=== PATIENT | female | born 1940 | race Caucasian/White ===

== ENCOUNTER 2017-04-13 17:52 | Emergency (ER) | payer OTHER ==
[2017-04-13 18:02] VITALS: BMI 34.3
--- NOTE | 2017-04-13 18:43 | DR.GENAD ---
HPI - PCP Primary Care Physician: Eliza Erazo - Complaint/Symptoms Chief Complaint Doctors Comments: Patient with a history of CHF. Chief Complaint:: "PT IS SWELLING FOR THE PAST TWO DAYS IN FEET" - Source History Provided: Patient - Mode of Arrival Mode of Arrival: Wheelchair - Timing Onset of Chief Complaint: 04/12/17 PMH - PMH Past Medical History: Yes Past Medical History: CHF, COPD, Diabetes, GERD, Hypertension Past Surgical History: Yes Surgical History: Hysterectomy - Family History History of Family Medical Conditions: Yes Family Medical History: Diabetes Mellitus, Heart Failure, Hypertension - Social History Does patient currently use any type of tobacco product: No Have you used tobacco products in the last 12 months: No Type of Tobacco Use: None Does any household member use tobacco: No Alcohol Use: None Do you use any recreational Drugs:: No Lives With: Family Lives Where: Home - infectious screening In the last 2 months have you had wt loss of >10#?: NO Have you had fever, night sweats or hemotysis?: No Have you traveled outside the country in the last 6 months?: No Isolation: Standard ROS - Review of Systems Constitutional: No Symptoms Reported Eyes: No Symptoms Reported ENTM: No Symptoms Reported Respiratoy: No Symptoms Reported Cardiovascular: No Symptoms Reported Gastrointestinal/Abdominal: No Symptoms Reported Genitourinary: No Symptoms Reported Neurological: No Symptoms Reported Musculoskeletal: No Symptoms Reported Integumentary: No Symptoms Reported Hematologic/Lymphatic: No Symptoms Reported Endocrine: No Symptoms Reported Psychiatric: No Symptoms Reported All Other Systems: Reviewed and Negative PE - Vital Signs Vitals: Temperature 97.6 F Pulse Rate [Apical] 72 Pulse Rate 71 Respiratory Rate 18 Blood Pressure [Right Arm] 144/62 Blood Pressure 181/81 O2 Sat by Pulse Oximetry 100 - General Limitations: No Limitations General Appearance: Alert, In No Apparent Distress - Head Head Exam: Normal Inspection, Atraumatic - Eyes Eye exam: Normal Appearance, PERRL, EOMI - ENT ENT Exam: Normal Exam, Normal Oropharynx External Ear Exam: Normal External Inspection TM/Canal Exam: Bilateral Normal Nose Exam: Normal Nose Exam Mouth Exam: Normal Inspection Throat Exam: Normal Inspection - Neck Neck Exam: Normal Inspection - Chest Chest Inspection: Normal Inspection - Respiratory Respiratory Exam: Normal Lung Sounds Bilat Respiratory Exam: Bilateral Clear to Auscultation - Cardiovascular Cardiovascular Exam: Regular Rate, Normal Rhythm - Abdominal Exam Abdominal Exam: Normal Inspection, Normal Bowel Sounds Abdominal Tenderness: negative: RUQ, RLQ, LUQ, LLQ, Epigastrium, Suprapubic, Diffuse, Mild, Moderate, Severe, Other - Extremities Extremities Exam: Edema (lower extremities 2+pitting) - Back Back Exam: Normal Inspection, Full ROM - Neurologic Neurological Exam: Alert, Oriented X3, CN II-XII Intact - Psychiatric Psychiatric Exam: Normal Affect, Normal Mood, Depressed - Skin Skin Exam: Warm, Dry, Intact ROR - Labs Reviewed Result Diagrams: 04/13/17 18:54 04/13/17 18:54 Laboratory: WBC 9.3 X10^3/uL (3.6-10.0) 04/13/17 18:54 RBC 3.43 X10^6/uL (3.5-5.4) L 04/13/17 18:54 Hgb 8.8 g/dL (12.0-16.0) L 04/13/17 18:54 Hct 27.6 % (36.0-47.0) L 04/13/17 18:54 MCV 80.5 fL (80.0-100.0) 04/13/17 18:54 MCH 25.6 pg (27.0-34.0) L 04/13/17 18:54 MCHC 31.8 g/dL (33.0-35.0) L 04/13/17 18:54 RDW 18.0 % (11.6-16.5) H 04/13/17 18:54 Plt Count 191 X10^3/uL (150.0-450.0) 04/13/17 18:54 Plt Count Comment Adequate (ADEQUATE) 04/13/17 18:54 MPV 9.8 fL (7.4-11.0) 04/13/17 18:54 Neut % 66.3 % (42.0-75.0) 04/13/17 18:54 Lymph % 23.7 % (21.0-51.0) 04/13/17 18:54 Bledsoe % 6.8 % (0.0-13.0) 04/13/17 18:54 Eos % 2.4 % (0.9-2.9) 04/13/17 18:54 Baso % 0.8 % (0.2-1.0) 04/13/17 18:54 Neut # 6.2 x10^3/uL (2.2-4.8) H 04/13/17 18:54 Lymph # 2.2 X10^3/uL (1.3-2.9) 04/13/17 18:54 Bledsoe # 0.6 x10^3/uL (0.3-0.8) 04/13/17 18:54 Eos # 0.2 x10^3/uL (0.0-0.2) 04/13/17 18:54 Baso # 0.1 X10^3/uL (0.0-0.1) 04/13/17 18:54 Absolute Nucleated RBC 0.1 /100WBC 04/13/17 18:54 Plt Morphology Comment Normal (NORMAL) 04/13/17 18:54 RBC Morphology Abnormal (NORMAL) A 04/13/17 18:54 Hypochromasia 1+ A 04/13/17 18:54 Microcytosis 1+ A 04/13/17 18:54 Sodium 145 mmol/L (136-145) 04/13/17 18:54 Corrected Sodium 146 mmol/L (136-145) H 04/13/17 18:54 Potassium 4.8 mmol/L (3.5-5.1) 04/13/17 18:54 Chloride 109 mmol/L (98-107) H 04/13/17 18:54 Carbon Dioxide 33.2 mmol/L (21-32) H 04/13/17 18:54 BUN 45 mg/dL (7-18) H 04/13/17 18:54 Creatinine 1.95 mg/dL (0.55-1.02) H 04/13/17 18:54 Est GFR (MDRD) Af Amer 32 (>60) L 04/13/17 18:54 Est GFR (MDRD) Non-Af 27 (>60) L 04/13/17 18:54 Glucose 158 mg/dL (65-99) H 04/13/17 18:54 Calcium 9.0 mg/dL (8.5-10.1) 04/13/17 18:54 Corrected Calcium 9.7 mg/dL (8.5-10.1) 04/13/17 18:54 Total Bilirubin 0.20 mg/dL (0.2-1.0) 04/13/17 18:54 AST 15 Units/L (15-37) 04/13/17 18:54 ALT 19 Units/L (12-78) 04/13/17 18:54 Alkaline Phosphatase 61 Units/L (46-116) 04/13/17 18:54 Total Protein 7.1 g/dL (6.4-8.2) 04/13/17 18:54 Albumin 3.1 g/dL (3.4-5.0) L 04/13/17 18:54 Globulin 4.0 g/dL (2.5-4.5) 04/13/17 18:54 Albumin/Globulin Ratio 0.8 Ratio (1.1-2.1) L 04/13/17 18:54 - XRAY XRAY Interpreted by: Radiologist (chest:There is cardiomegaly without pneumothorax or dense opacity. Small effusions possible. Increased interstitial markings suggested. Old left sided rib fractures noted. Old ledf claviclefracture noted. ..cardiomegal with mild edema.) - Diagnosis Discharge Problem: Cardiomegaly, Lower extremity edema - Discharge Plan Condition: Stable - Follow ups/Referrals Follow ups/Referrals: KEVIN BERG [Primary Care Provider] - 3 days - Instructions
[2017-04-13 19:01] LABS: BASOPHILS # (AUTO) 0.1 X10^3/uL (0.0-0.1); BASOPHILS % (AUTO) 0.8 % (0.2-1.0); EOSINOPHILS # (AUTO) 0.2 x10^3/uL (0.0-0.2); EOSINOPHILS % (AUTO) 2.4 % (0.9-2.9); HEMATOCRIT 27.6 % (36.0-47.0); HEMOGLOBIN 8.8 g/dL (12.0-16.0); LYMPHOCYTES # (AUTO) 2.2 X10^3/uL (1.3-2.9); LYMPHOCYTES % (AUTO) 23.7 % (21.0-51.0); MEAN CORPUSCULAR HEMOGLOBIN 25.6 pg (27.0-34.0); MEAN CORPUSCULAR HGB CONC 31.8 g/dL (33.0-35.0); MEAN CORPUSCULAR VOLUME 80.5 fL (80.0-100.0); MEAN PLATELET VOLUME 9.8 fL (7.4-11.0); MONOCYTES # (AUTO) 0.6 x10^3/uL (0.3-0.8); MONOCYTES % (AUTO) 6.8 % (0.0-13.0); NEUTROPHILS # (AUTO) 6.2 x10^3/uL (2.2-4.8); NEUTROPHILS % (AUTO) 66.3 % (42.0-75.0); PLATELET COUNT 191 X10^3/uL (150.0-450.0); RED BLOOD COUNT 3.43 X10^6/uL (3.5-5.4); WHITE BLOOD COUNT 9.3 X10^3/uL (3.6-10.0)
[2017-04-13 19:13] LABS: ALBUMIN 3.1 g/dL (3.4-5.0); CARBON DIOXIDE 33.2 mmol/L (21-32); COR CA(FOR HYPOALB) 9.7 mg/dL (8.5-10.1); CREATININE 1.95 mg/dL (0.55-1.02); TOTAL PROTEIN 7.1 g/dL (6.4-8.2)
--- NOTE | 2017-04-13 19:13 | RAD ---
Chest AP portable Indication: Bilateral lower extremity edema and dyspnea. Findings: There is cardiomegaly without pneumothorax, or dense opacity. Small effusions possible. Inc reased interstitial markings suggested. Old left-sided rib fractures noted. Old left clavicle fractur e noted. Impression: Body habitus limited study, suggesting cardiomegaly and mild edema. CHF possible. Reported By:
[2017-04-13 19:19] LABS: HYPOCHROMASIA 1+; MICROCYTOSIS 1+; PLATELET MORPHOLOGY COMMENT NORMAL (NORMAL)
[2017-04-13] MEDS ORDERED: LASIX IVP ONE ×2 (19:42)
[2017-04-13 20:16] VITALS: BP 144/62
== END 2017-04-13 20:52 | disposition home or self-care (01) ==
LOC: ER 18:13 → EDBD 18:13 → ER 20:52
DX: I51.7 Cardiomegaly (principal); R60.0 Localized edema
CPT/HCPCS: 36415; 71010; 80053; 85025; 93005; 93010; 96365; 96374; 99283; A4222; J1940